=== PATIENT | male | born 1930 | race Caucasian/White ===

== ENCOUNTER → 2016-12-29 | Outpatient (CLI) | payer BC ==
[~2016-12-29] MED LIST: ALPOPS1 OPB; AMB5 PO; AMOX875T PO; ASPCH81 PO; CLON1TAB3 PO; CLX20 PO; FRRS300 PO; GABA-113 PO; GLCSUNK PO; IBUP1TAB51 PO; LAMO200T38 PO; NTRGSL/4 UT; PRAV20TA PO; ROPI1TAB PO; ROPI2TAB6 PO; TRAM-10 PO; TRVOPS OP
== END ==
LOC: C.LABFOXMH 09:10
PROVIDERS: ATTEND Internal Medicine
DX: G25.81 Restless legs syndrome (principal)

== ENCOUNTER → 2017-02-10 | Outpatient (CLI) | payer BC | END | disposition home or self-care (01) | LOC: C.LAB 16:06 | PROVIDERS: ATTEND Nurse Practitioner Family | DX: D64.9 Anemia, unspecified (principal) ==

== ENCOUNTER → 2017-03-25 | Outpatient (CLI) | payer BC ==
[2017-03-25 16:40] LABS: BASO % 0.2 %; BASO ABS # 0.01 K/uL (0-0.2); COMPLETE YES; EOS % 1.9 %; IG% 0.3 %; MEAN CELL VOLUME 92.9 fL (80-100); MEAN CORPUSCULAR HEMOGLOBIN 30.3 pg (25-34); MEAN CORPUSCULAR HGB CONC 32.6 g/dl (32-36); MEAN PLATELET VOLUME 9.5 fL (7.4-10.4); MONO % 7.6 %; PLATELET COUNT 221 K/uL (130-400); RED BLOOD COUNT 4.95 M/uL (4.7-6.1); WHITE BLOOD COUNT 6.32 K/uL (4.8-10.8)
== END | disposition home or self-care (01) ==
LOC: C.LABBC 13:35
PROVIDERS: ATTEND Nurse Practitioner Family
DX: T14.8 Other injury of unspecified body region (principal); X58.XXXA Exposure to other specified factors, initial encounter

== ENCOUNTER → 2017-04-06 | Outpatient (CLI) | payer BC ==
[2017-04-06 10:06] LABS: HEMATOCRIT 43.6 % (42-52); MEAN CELL VOLUME 91.2 fL (80-100); MEAN CORPUSCULAR HEMOGLOBIN 31.8 pg (25-34); MEAN CORPUSCULAR HGB CONC 34.9 g/dl (32-36); MEAN PLATELET VOLUME 9.8 fL (7.4-10.4); PLATELET COUNT 173 K/uL (130-400); RED BLOOD COUNT 4.78 M/uL (4.7-6.1); WHITE BLOOD COUNT 5.76 K/uL (4.8-10.8)
[2017-04-06 10:38] LABS: ALT/SGPT 19 U/L (12-78); AST/SGOT 13 U/L (15-37); BLOOD UREA NITROGEN 16 mg/dl (7-18); BUN/CREATININE RATIO 17.2 (10-20); CALCIUM 8.7 mg/dl (8.5-10.1); CARBON DIOXIDE 27 mmol/L (21-32); CHLORIDE 106 mmol/L (98-107); CREATININE 0.94 mg/dl (0.60-1.40); GLUCOSE 90 mg/dl (70-99); POTASSIUM 4.1 mmol/L (3.5-5.1); SODIUM 138 mmol/L (136-145)
[2017-04-06 10:48] LABS: ALB/GLOB RATIO 1.2 (0.9-2); ALKALINE PHOSPHATASE 79 U/L (45-117)
== END | disposition home or self-care (01) ==
LOC: C.LABFOXMH 09:03
PROVIDERS: ATTEND Internal Medicine
DX: R53.83 Other fatigue (principal)

== ENCOUNTER → 2017-05-09 | Outpatient (CLI) | payer BC ==
--- NOTE | 2017-05-10 06:10 | PAP/PSG TECHNICIAN REPORT ---
[facility] [address] Site Reliability Engineer Polysomnogram Report Study name: None Report date: 05/10/2017 Study date: 05/09/2017 Referring Physician: Sánchez Romano M.D. Name: OUMAR TAYLOR Interpreting Physician: Gregorio Jovel M.D. Date of : 1930 Site Reliability Engineer: Poly Hooks RPSGT. Sex: Male Age: 87 StudyType: PSG Weight: 148 lbs Height: 87 years, Height 5' 7.25" BMI: 23.01 Medications: Lamictal 100 mg, Klonopin 1 mg, Mirapex 0.25 mg, Ferrous Sulfate 325 mg, Ibuprofen 200 mg, Pepcid 20 mg, Pravastatin 20 mg Patient History 87 yr. old male here tonight for a diagnostic sleep study. Patient complains of PLMD but his medicine was changed and is sleeping better. Patient complains of snoring in the supine position, and twitching at night. Patients [place] Scale Score is 13/24. Parameters Monitored NPSG: E1-M2, E2-M1, Fp1-M2, Fp2-M1, F3-M2, F4-M2, F4-M1, C3-M2, C4-M2, C4-M1, O1-M2, O2-M2, O2-M1, T3-M2, T4-M1, P3-M2, P4-M1, CHIN1, CHIN2, HR, EKG, Legs, PFLOW, SNOR, FLOW, CFLOW, Tidal Volume, THOR, ABDO, SpO2, PLTH, CPRESS, ETCO2 Wave, ETCO2, pH Sleep Architecture Sleep Stages Time at Lights Off 10:16:19 PM STAGES Time (min.) TST (%) Time at Lights On 5:55:19 AM Wake 117.5 -- Total Recording Time (TRT) 459.50 min. N1 61.5 18 Total Sleep Period (TSP) 422.5 min. N2 259.5 76 Total Sleep Time (TST) 341.0min. N3 0.0 0 Awake Time 117.5 min. REM 20.0 6 Wake after Sleep Onset 81.5 min. Sleep Efficiency (SE) 74 % Sleep Onset Latency (RAMONA) 36.5 min. Number of Stage 1 Shifts None Awakenings 52 Stage Changes 158 Number of REM periods 2 REM 20.0 6 REM Latency 109.0 min. NREM 321.0 94 Body Position Analysis Supine Right Left Side Prone Vertical Total Sleep Time (min.) 82.5 104.5 178.0 282.50 0.0 31.9 Total Sleep Time (%) 17% 31% 52% 83 0% N/A% Total Sleep Time REM (min.) 11.5 0.0 8.5 None 0.0 0.0 Total Sleep Time NREM (min.) 47.0 104.5 169.5 None 0.0 0.0 Intermittent Wake (min.) 24.0 22.2 39.5 None 0.0 31.9 Total Sleep Period (%) 20% None None None None None Arousals Myoclonus (PLM) * Events Count Index Events Count Index Spontaneous 12 2 Events Awake (PLMW) 53 27.1 Respiratory 2 0.5 Events Asleep w/ Arousal (PLMA) 17 3.0 PLM 14 3 Events Asleep w/o Arousal (PLMS) 23 4.0 Snoring 15 3 Total Asleep 40 7.0 Total 41 7 Total 93 12 Respiratory Analysis * CA OA MA CH H RERA Total Count 0 0 0 0 7 0 7 Index 0.0 0.0 0.0 0 1.2 0 1.2 Mean Duration 0.0 0.0 0.0 0.00 19.6 0.0 19.6 Longest Duration 0.0 0.0 0.0 0.00 0.0 0.0 31.7 Respiratory Event Summary Total Supine ~Supine Right Left Prone REM NREM Apneas Count 0 0 0 0 0 N/A 0 0 Index 0.0 0 0 0.0 0.0 N/A 0 0 Hypopneas (4% Desat) Count 7 6 1 0 1 N/A 0 7 Index 1.2 6.2 0 0.0 0.3 N/A 0.0 1.3 Apneas & All Hypopneas Count 7 6 1 0 1 N/A 0 7 Index 1.2 6 0 0 0 N/A 0.0 1.3 Respiratory Events (Sales Effectiveness Manager+All Hyp+RERA) Count 7 6 1 0 1 N/A 0 7 Index 1.2 6 0 0.0 0.3 N/A 0.0 1.3 Respiratory Related Arousal Count 2 6 0 0 0 N/A 0 3 Index 0.5 3 0 0 0 N/A 0 1 Snoring Analysis Supine Right Left Prone REM NREM Total Snore duration 8.4 min Snores count 139 13 261 N/A 4 409 413 Snore mean duration 1.2 Sec Snores index 143 7 88 N/A 12.0 76.4 72.7 TST with snoring (%) 2.5% Desaturation Event Summary: Minimum %SpO2 Event Count Mean/Min/Max Duration(sec.) Desaturation Index % Time In Bed > 90 39 32.7 / 16.0 / 59.3 13.4 38.6 86 - 90 11 26.7 / 18.5 / 34.3 2.4 61.3 81 - 85 1 11.0 / 11.0 / 11.0 87.8 0.2 76 - 80 0 N/A 0.0 0.0 71 - 75 0 N/A 0.0 0.0 66 - 70 0 N/A 0.0 0.0 61 - 65 0 N/A 0.0 0.0 56 - 60 0 N/A 0.0 0.0 51 - 55 0 N/A 0.0 0.0 < 50 0 N/A 0.0 0.0 Total REM NREM Awake <50% 0.0 min. 0.0 min. 0.0 min. 0.0 min. 51 - 60% 0.0 min. 0.0 min. 0.0 min. 0.0 min. 61 - 70% 0.0 min. 0.0 min. 0.0 min. 0.0 min. 71 - 80% 0.0 min. 0.0 min. 0.0 min. 0.0 min. 81 - 90% 277.0 min. 17.0 min. 210.2 min. 49.8 min. 91 - 100% 174.0 min. 3.0 min. 109.5 min. 61.5 min. Average 90 90 90 91 Minimum SpO2 83 89 87 83 Desaturation Event Index 5.4 0.0 4.1 11.2 # Desat. Events below 89% 24 N/A 14 10 Time(%) with Saturation below 89% 2.3 0.0 1.1 1.2 Time(min.) with Saturation below 89% 10.5 0.0 5.0 5.5 Time (mins) REM (mins) NREM (mins) % of TST SpO2 Below 90% 20 N/A N20 17.7 SpO2 Below 88% 6 0 0 0 Heart Rate Analysis Min (bpm) Max (bpm) Average (bpm) Awake 60 127 70 NREM 36 77 65 REM 52 64 61 Overall 36 77 65 Supplemental O2 Values Minimum O2 level: None Value Start Time End Time Site Reliability Engineer Comments Mr. Taylor slept in the right, left, and supine positions. Cardiac arrhythmia and PLMs noted. No bruxism noted. Snoring was noted and scored as a 4 on a scale of 0 through 5. (0=no snoring, 5=snoring loud enough to be heard through a closed door or down the [address]) Mr. Taylor awoke to use the restroom once during the night. Mr. Taylor stated, I slept a little worse last night, but still better than I have been months ago. The final report will be interpreted and signed by a sleep physician. The completed physician report will then be placed in the patient medical record. Therapy (cm H2O) 0 TIB (min.) 458.5 TST (min.) 341.0 Sleep Onset (min.) 36.5 REM Onset From Sleep (min.) 109.0 Sleep Efficiency % 74 Wakefulness (%) 26 Wakefulness (min.) 117.5 NREM 1 (%) 18 NREM 1 (min.) 61.5 NREM 2 (%) 76 NREM 2 (min.) 259.5 NREM 3 (%) 0 NREM 3 (min.) 0.0 REM (%) 6 REM (min.) 20.0 # Arousals 41 Arousal Index 7 # Snore 413 Snore Index 72.7 AHI 1.2 AHI Supine 6 AHI Non-Supine 0 NREM AHI 1.3 REM AHI 0.0 RDI 1.2 # Obstructive Apnea 0 # Central Apnea 0 # Mixed Apnea 0 # Hypopneas 7 RERAs 0 Total Respiratory Events 9 Time Below SpO2 89% (min.) 5.0 Mean NREM SpO2 (%) 90 Mean REM SpO2 (%) 90 Mean Sleep SpO2 (%) 90 Min NREM SpO2 (%) 87 Min REM SpO2 (%) 89 Position Supine (min.) 82.5 Position Non-supine (min.) 282.5 LM Index Sleep 7.0 LM Index NREM 7.1 LM Index REM 6.0 Mean Heart Rate (bpm) 65 Min Heart Rate (bpm) 36
--- NOTE | 2017-05-11 14:04 | POLYSOMNOGRAPH REPORT ---
CLINICAL DATA: This is an 87-year-old male with BMI of [address] Leydi Romano with a history of PLMD. He recently was placed on Mirapex and he is sleeping better. He has snoring when supine and twitching at night. His [place] sleepiness score was elevated at 13/24. SLEEP ARCHITECTURE: Total sleep period was 422.5 minutes. Total sleep time was 341 minutes divided between 321 minutes of non-REM sleep and 20 minutes of REM sleep. Sleep onset latency was slightly delayed at 36.5 minutes. REM latency was 109 minutes. Sleep efficiency was 74%. Wake after sleep onset was 81.5 minutes. Sleep consisted of stage N1 18%, stage N2 76%, and REM 6%. AROUSAL DATA: 41 arousals were recorded for an index of 7 per hour. PLM DATA: 40 limb movements during sleep were noted for an index of 7 per hour with arousal index of 3 per hour. RESPIRATORY DATA: There was no evidence of clinically significant sleep apnea. The AHI was 1.2. There were 7 hypopneic episodes with a mean duration of 19.6 seconds. OXIMETRY DATA: Very transient nocturnal hypoxemia was seen. Oxygen tashia was 87%. Mean saturation was 90%. Time below 88% was 6 minutes. EKG: Heart rates ranged from 36-77 beats per minute. PVCs were noted. MACHINE CEMENTER AND FOLDER'S COMMENTS: The patient slept in the right, left, and supine positions. Snoring was severe, rated 4 on a scale of 1-5. He only awoke once to use the restroom. IMPRESSION: No evidence of clinically significant sleep apnea/hypopnea, nocturnal hypoxemia or abnormal limb movements during sleep. RECOMMENDATIONS: The patient should continue with his use of pramipexole for RLS/PLMD and continue to practice good sleep hygiene. JESSICAD
== END | disposition home or self-care (01) ==
LOC: C.NEUR 20:00
PROVIDERS: ATTEND Nurse Practitioner Family
DX: G47.33 Obstructive sleep apnea (adult) (pediatric) (principal); G47.10 Hypersomnia, unspecified; R06.83 Snoring

== ENCOUNTER → 2017-05-12 | Outpatient (CLI) | payer BC ==
[2017-05-12 08:19] LABS: MEAN CELL VOLUME 91.1 fL (80-100); MEAN CORPUSCULAR HEMOGLOBIN 31.3 pg (25-34); MEAN CORPUSCULAR HGB CONC 34.4 g/dl (32-36); MEAN PLATELET VOLUME 9.5 fL (7.4-10.4); PLATELET COUNT 167 K/uL (130-400); WHITE BLOOD COUNT 5.49 K/uL (4.8-10.8)
[2017-05-12 08:27] LABS: ALT/SGPT 18 U/L (12-78); BLOOD UREA NITROGEN 15 mg/dl (7-18); CALCIUM 8.9 mg/dl (8.5-10.1); CARBON DIOXIDE 27 mmol/L (21-32); CHLORIDE 105 mmol/L (98-107); CHOLESTEROL 132 mg/dl (0-200); CREATININE 0.94 mg/dl (0.60-1.40); GLUCOSE 88 mg/dl (70-99); POTASSIUM 4.1 mmol/L (3.5-5.1); SODIUM 139 mmol/L (136-145); TRIGLYCERIDES 50 mg/dl (0-150); VERY LOW DENSITY LIPOPROT CALC 10 mg/dl
[2017-05-12 08:36] LABS: ALB/GLOB RATIO 1.1 (0.9-2); ALKALINE PHOSPHATASE 71 U/L (45-117); AST/SGOT 15 U/L (15-37); FERRITIN 88.9 ng/ml (8.0-388.0); HDL CHOLESTEROL 65 mg/dl; LDL CHOLESTEROL CALCULATED 57 mg/dl; TOTAL IRON BINDING CAPACITY 247 mcg/dl (250-450)
--- NOTE | 2017-05-19 09:05 | CODING QUERY MEDICAL NECESSITY ---
SUPPORTING DIAGNOSIS NEEDED A supporting diagnosis is required for the test/procedure performed on this patient in order for us to be reimbursed by the patient's insurance. Please provide a supporting diagnosis for the following test/procedure listed below next to the test name along with your signature. *If there is no additional diagnosis for this patient that would support the following test/procedure please document that below next to the test/procedure. Test(s)/Procedure(s) that require a supporting diagnosis: * CBC W/O DIFF DIAGNOSIS: Provider Signature: Date: Thank you Sue Elder [employer] Once completed, please kindly fax back to [phone] For questions please call [phone]
== END | disposition home or self-care (01) ==
LOC: C.LABFOXMH 07:44
PROVIDERS: ATTEND Internal Medicine
DX: R53.83 Other fatigue (principal); E03.9 Hypothyroidism, unspecified; E78.00 Pure hypercholesterolemia, unspecified

== ENCOUNTER → 2017-11-22 | Outpatient (CLI) | payer BC ==
[~2017-11-22] MED LIST changes: +LAMO200T35 PO; -LAMO200T38 PO
--- NOTE | 2017-11-22 15:29 | DIAGNOSTIC IMAGING REPORT ---
CHEST 2 VIEWS ROUTINE CLINICAL HISTORY: COUGH dyspnea COMPARISON STUDY: 07/02/2010 FINDINGS: Mild emphysematous change. No focal infiltrate. 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 IMPRESSION: No acute process. Mild emphysematous change. The above report was generated using voice recognition software. It may contain grammatical, syntax or spelling errors. Electronically signed by: Peña Saldana M.D. 11/22/2017 3:28 PM Dictated Date/Time: 11/22/2017 3:27 PM
== END | disposition home or self-care (01) ==
LOC: C.RADBC 15:08
PROVIDERS: ATTEND Internal Medicine
DX: R05 Cough (principal)

== ENCOUNTER 2021-03-17 09:01 | Inpatient (IN) ==
[2021-03-17] MEDS ORDERED: IPRATROPIUM BROMIDE/ALBUTEROL respimat INH INH STA (09:44)
[2021-03-17 10:46] LABS: Basophils # (auto) 0.01 K/uL (0-0.2); Basophils % (auto) 0.2 %; Eosinophils # (auto) 0.14 K/uL (0-0.5); Eosinophils % (auto) 2.4 %; Hematocrit (blood only) 39.2 % (42-52); Hemoglobin 13.2 g/dL (14.0-18.0); Immature Granulocytes # (auto) 0.01 K/uL (0.00-0.02); Immature Granulocytes % (auto) 0.2 %; Lymphocytes # (auto) 0.87 K/uL (1.2-3.4); Lymphocytes % (auto) 14.7 %; Mean Corpuscular Hemoglobin 30.8 pg (25-34); Mean Corpuscular Hgb Conc 33.7 g/dL (32-36); Mean Corpuscular Volume 91.4 fL (80-100); Mean Platelet Volume 9.6 fL (7.4-10.4); Monocytes # (auto) 0.53 K/uL (0.11-0.59); Monocytes % (auto) 8.9 %; Neutrophils # (auto) 4.37 K/uL (1.4-6.5); Neutrophils % (auto) 73.6 %; Platelet Count 166 K/uL (130-400); RDW Coefficient of Variation 13.7 % (11.5-14.5); RDW Standard Deviation 45.2 fL (36.4-46.3); Red Blood Count 4.29 M/uL (4.7-6.1); White Blood Count 5.93 K/uL (4.8-10.8)
[2021-03-17 10:57] LABS: INR 1.1 (0.9-1.1); Partial Thromboplastin Time 26.5 Seconds (21.0-31.0); Prothrombin Time 11.3 Seconds (9.0-12.0)
[2021-03-17 11:05] LABS: Alanine Aminotransferase 27 U/L (12-78); Albumin Level 3.3 gm/dl (3.4-5.0); Aspartate Aminotransferase 19 U/L (15-37); BUN Creatinine Ratio 16.5 (10-20); Blood Urea Nitrogen 17 mg/dl (7-18); Calcium 8.2 mg/dl (8.5-10.1); Carbon Dioxide 25 mmol/L (21-32); Chloride 111 mmol/L (98-107); Creatinine Clr Calc Pharmacy 47.2 ml/min; Est GFR (African American) 75.2 ml/min; Est GFR (Non-African American) 64.9 ml/min; Glucose 105 mg/dl (70-99); Lipase 231 U/L (73-393); Magnesium 1.7 mg/dl (1.8-2.4); Potassium 2.7 mmol/L (3.5-5.1); Sodium 142 mmol/L (136-145)
[2021-03-17 11:08] LABS: Albumin Globulin Ratio 1.2 (0.9-2); Alkaline Phosphatase 83 U/L (45-117); Bilirubin Direct 0.2 mg/dl (0-0.2); Bilirubin,Total 0.6 mg/dl (0.2-1); Globulin 2.8 gm/dl (2.5-4.0); NT Pro B Type Natriuretic Pept 3987 pg/ml (0-1800); Phosphorus 2.9 mg/dl (2.5-4.9); Total Protein 6.1 gm/dl (6.4-8.2); Troponin I < 0.015 ng/ml (0-0.045)
--- NOTE | 2021-03-17 11:09 | XRay Report ---
XR chest 1V portable CLINICAL HISTORY: Chest Pain COMPARISON STUDY: Chest radiograph June 07, 2019. FINDINGS: Dual lead left subclavian pacemaker is in place. There is no pneumothorax. There are small bilateral pleural effusions with bibasilar opacities. Interstitial thickening represents pulmonary ed kael. IMPRESSION: Interstitial pulmonary edema with small bilateral pleural effusions and bibasilar opacit ies that statistically reflect atelectasis. Radiographic follow-up is recommended to ensure resolutio n. ACT 112: Negative or not required by law. Electronically signed by: Favian Rocha M.D. 03/17/2021 11:08 AM
[2021-03-17] MEDS ORDERED: MAGNESIUM SULFATE / D5W 1 GM/100 ML BAG IV STA (11:44)
[2021-03-17] MEDS: POTASSIUM CHLORIDE / WTR 10 MEQ/100 ML PLCT IV SCH ×4 (12:33→16:23)
--- NOTE | 2021-03-17 12:43 | CT Scan Report ---
CT ANGIOGRAPHY OF THE CHEST, PULMONARY EMBOLUS PROTOCOL CLINICAL HISTORY: sob, hypoxia, PE COMPARISON STUDY: Chest radiograph June 07, 2019 and March 17, 2021. TECHNIQUE: Following IV administration of 119 mL of Optiray, helical axial images of the chest were o btained utilizing the pulmonary embolus protocol. Maximal intensity projections and sagittal and cor onal reformats were viewed on an independent 3D workstation. IV contrast was administered without co mplication. Automated exposure control was utilized for the study. A dose lowering technique was ut ilized adhering to the principles of ALARA. CT DOSE: 291.80 mGy.cm FINDINGS: No pulmonary emboli are identified. A left clavian pacer is in place. There is mild cardio megaly. No pericardial effusion is noted. No pneumothorax. There are small bilateral pleural effusion s with associated atelectasis. Interlobular septal thickening is noted. Note is made of emphysema. A 4 mm right renal calculus is present. There is a punctate left renal calculus. A 1.1 cm right lobe hy podense hepatic lesion is similar to prior CT. This is benign. No acute fracture or suspicious lesion is identified within the visualized skeletal structures. There are multiple old healed left rib frac tures. There is moderate atherosclerotic plaque of the thoracic aorta. Coronary artery calcification is present. IMPRESSION: 1. No pulmonary emboli identified. 2. Interstitial pulmonary edema with small bilateral pleural effusions. 3. Emphysema. 4. Extensive coronary artery calcification. Mild cardiomegaly. ACT 112: Negative or not required by law. Electronically signed by: Favian Rocha M.D. 03/17/2021 12:42 PM
[2021-03-17] MEDS ORDERED: POTASSIUM CHLORIDE CRTAB 20 MEQ TABCR PO STA (13:56)
[2021-03-17] MEDS ORDERED: FUROSEMIDE 40 MG/4 ML VIAL IV STA (14:03)
--- NOTE | 2021-03-17 15:43 | Emergency Department Note ---
Impression & Plan CHF (congestive heart failure), Hypokalemia, Pacemaker ED Provider Note NAME: OUMAR RUFF AGE: 89 SEX: M ARRIVES VIA: Walk-In INFORMANT: Patient, ED PROVIDER(S): Tyler Marti MD CHIEF COMPLAINT: sob PLAN: Disposition: Admit MEDICAL DECISION MAKING: The patient is a pleasant 89-year-old gentleman with a past medical history of emphysema secondary to remote smoking history who presents to the emergency department with worsening shortness of breath over the past several weeks with the development of lower extremity edema. He reports seeing his provider yesterday and was told to come to emergency department if he did not feel improved today and so he presents for evaluation. He reports mildly productive cough. He denies any known COVID-19 exposures. He denies any fevers, chills, nausea, vomiting, diarrhea or urinary symptoms. On arrival the patient is mildly dyspneic appearing but no acute distress, afebrile with stable vital signs. He was noted to have hypoxia to 85% with minimal exertion walking to the bathroom. When at rest he will have O2 saturation of 93% or greater. Lungs with scant wheeze and rhonchi. 1+ BLE edema. EKG is paced without overt acute ischemia. Chest x-ray with pulmonary edema and bilateral pleural effusions further characterized on CTA of the chest. No PE is noted. Extensive coronary calcifications noted. WBC and platelets within normal limits. H/H 13.2/39.2 proximate to prior values. Potassium 2.7 with repletion initiated. Magnesium 1.7 with repletion initiated. Troponin negative/undetectable. BNP is elevated at 3900 without prior values for comparison. COVID-19 PCR was negative. Given the patient's hypoxia with minimal exertion and hypervolemia which appears to be new reasonable to admit the patient for further management. Lasix ordered. The patient and his daughter at the bedside were in agreement with plan for admission. Case was discussed with Dr. Helton, [facility] [place]ist, who will evaluate the patient for admission. Triage Nursing notes reviewed and agree them. Prior medical records reviewed Vital Signs: reviewed and remarkable for hypoxia. Differential diagnosis: Reactive airway disease, pneumonia, pneumothorax, COPD, CHF, infections, cardiac ischemia, pulmonary embolism, musculoskeletal, gastrointestinal, as well as other pathologies. ER treatment provided: See below. Diagnostics interpreted by me: ECG: Ventricular paced rhythm, 63 bpm, no ectopy, no overt acute ischemia. Cardiac Monitoring: An order for continuous cardiac monitoring was placed and demonstrated ventricular paced rhythm, 63 bpm, no ectopy. Laboratory studies: See below Imaging studies: See below Consultation(s): Case was discussed with Dr. Helton, [facility] [place]ist, who will evaluate the patient for admission. HPI: The patient is a pleasant 89-year-old gentleman with a past medical history of emphysema secondary to remote smoking history who presents to the emergency department with worsening shortness of breath over the past several weeks with the development of lower extremity edema. He reports seeing his provider yesterday and was told to come to emergency department if he did not feel improved today and so he presents for evaluation. He reports mildly productive cough. He denies any known COVID-19 exposures. ROS: See above HPI for pertinent positives & negatives. A total of 10 systems reviewed and were otherwise negative. PAST MEDICAL HISTORY:See Below PAST SURGICAL HISTORY:See Below FAMILY HISTORY:See Below SOCIAL HISTORY:See Below HOME MEDICATIONS:See Below ALLERGIES:See Below VITALS:See Below PHYSICAL EXAMINATION: GENERAL: Awake, alert, fatigued-appearing, in no distress HENT: Normocephalic, atraumatic. Oropharynx unremarkable. EYES: Normal conjunctiva. Sclera non-icteric. NECK: Supple. No nuchal rigidity. FROM. No JVD. RESPIRATORY: Scant wheezes and rhonchi. Mildly dyspneic. No acute distress. CARDIAC: Regular rate, normal rhythm. Extremities warm and well perfused. Pulses equal. ABDOMEN: Soft, non-distended. No tenderness to palpation. No rebound or guarding. No masses. RECTAL: Deferred. MUSCULOSKELETAL: Chest examination reveals no tenderness. The back is symmetrical on inspection without obvious abnormality. There is no CVA tenderness to palpation. No joint edema. LOWER EXTREMITIES: Calves are equal size bilaterally and non-tender. 1+ BLE edema. No discoloration. NEURO: Normal sensorium. No sensory or motor deficits noted. SKIN: No rash or jaundice noted. 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 Restless leg syndrome Seizure EPILEPSY (LAST EVENT OVER 30 YEARS AGO) Surgical History History of cataract surgery RT/LEFT History of colonoscopy History of esophagogastroduodenoscopy (EGD) History of tonsillectomy History of tooth extraction History of total knee replacement RT/LEFT Family History Mother Family history of diabetes mellitus Social History Smoking Status: Former smoker Cigarettes Per Day: QUIT OVER 50 YEARS AGO; Second Hand Exposure: No; Hx Alcohol Use: Yes Alcohol type: beer, wine and hard liquor Hx Substance Use: No Preferred Language: Irish Communication Ability: Effective Genetic Technologist Required: No Beliefs That Will Affect Care: None Current Living Situation: Spouse Other Information That Helps Us Care for You: No Feels Safe at Home: Yes Safety Concerns: Feels Safe At This Time Assistive Devices: Denture - Upper, Glasses and Hearing Aid - Bilateral Allergies Allergies Allergy/AdvReac Type Severity Reaction Status Date / Time No Known Allergies Verified 03/17/21 11:07 Home Meds Home Medications Medication Instructions Recorded Confirmed citalopram 40 mg tablet (Celexa) 40 mg PO HS 06/07/18 03/17/21 clonazepam 1 mg tablet (Klonopin) 1 mg PO HS 06/07/18 03/17/21 lamotrigine 100 mg tablet 100 mg PO HS 06/07/18 03/17/21 (Lamictal) pravastatin 20 mg tablet 20 mg PO HS 06/07/18 03/17/21 pramipexole 0.25 mg tablet 0.25 mg PO BID 06/13/18 03/17/21 (Mirapex) aspirin 81 mg tablet,delayed 81 mg PO HS 03/17/21 03/17/21 release (Aspirin Low Dose) metoprolol tartrate 25 mg tablet 25 mg PO BID 03/17/21 03/17/21 Results & Data (ED) Vital Signs Vital Signs - 24 hr 03/17/21 09:02 03/17/21 09:09 03/17/21 10:31 Temperature 36.1 C L Temperature Source Temporal Artery Scan Pulse Rate 85 72 Pulse Rate [Apical] Pulse Rate from SpO2 Sensor 70 Respiratory Rate 22 22 20 Respiratory Effort / Characteristics Short of Breath Respiratory Depth Shallow Respiratory Pattern Tachypnea Blood Pressure 128/76 129/66 Blood Pressure [Left Arm] Blood Pressure Mean 93 87 Blood Pressure Mean [Left Arm] Blood Pressure Position [Left Arm] Pulse Oximetry 94 90 Oxygen Delivery Method Room Air Room Air Oxygen Flow Rate Sepsis Recent Fever Within 48 Hours No Sepsis New/Unexplained Change in Mental Status N/A Sepsis Action Taken by Nursing No Action Required Oxygen Flow Rate - Titration Pulse Oximetry Post Tiitration 03/17/21 10:37 03/17/21 10:38 03/17/21 11:02 Temperature Temperature Source Pulse Rate Pulse Rate [Apical] Pulse Rate from SpO2 Sensor Respiratory Rate 22 Respiratory Effort / Characteristics Respiratory Depth Normal Respiratory Pattern Tachypnea Blood Pressure Blood Pressure [Left Arm] 159/82 H Blood Pressure Mean Blood Pressure Mean [Left Arm] 107 Blood Pressure Position [Left Arm] Lying Pulse Oximetry 89 L 89 L 93 Oxygen Delivery Method Room Air Nasal Cannula Nasal Cannula Oxygen Flow Rate 0 2 Sepsis Recent Fever Within 48 Hours Sepsis New/Unexplained Change in Mental Status Sepsis Action Taken by Nursing Oxygen Flow Rate - Titration 2 Pulse Oximetry Post Tiitration 93 03/17/21 12:20 03/17/21 13:10 03/17/21 14:49 Temperature Temperature Source Pulse Rate 66 61 62 Pulse Rate [Apical] Pulse Rate from SpO2 Sensor 65 62 Respiratory Rate 20 20 21 Respiratory Effort / Characteristics Respiratory Depth Respiratory Pattern Blood Pressure 174/93 H 169/94 H 158/104 H Blood Pressure [Left Arm] Blood Pressure Mean 120 119 122 Blood Pressure Mean [Left Arm] Blood Pressure Position [Left Arm] Pulse Oximetry 90 94 95 Oxygen Delivery Method Oxygen Flow Rate Sepsis Recent Fever Within 48 Hours Sepsis New/Unexplained Change in Mental Status Sepsis Action Taken by Nursing Oxygen Flow Rate - Titration Pulse Oximetry Post Tiitration 03/17/21 14:51 03/17/21 16:02 Temperature Temperature Source Pulse Rate 83 Pulse Rate [Apical] 62 Pulse Rate from SpO2 Sensor Respiratory Rate 18 Respiratory Effort / Characteristics Respiratory Depth Respiratory Pattern Blood Pressure 155/105 H Blood Pressure [Left Arm] 158/104 H Blood Pressure Mean 121 Blood Pressure Mean [Left Arm] 122 Blood Pressure Position [Left Arm] Pulse Oximetry 93 Oxygen Delivery Method Room Air Oxygen Flow Rate Sepsis Recent Fever Within 48 Hours Sepsis New/Unexplained Change in Mental Status Sepsis Action Taken by Nursing Oxygen Flow Rate - Titration Pulse Oximetry Post Tiitration Laboratory Data Attestation: I reviewed the patient's lab results. Result diagrams: 03/17/21 10:32 03/17/21 10:32 Lab Results 03/17/21 03/17/21 03/17/21 Range/Units 10:03 10:03 10:32 WBC 5.93 (4.8-10.8) K/uL RBC 4.29 L (4.7-6.1) M/uL Hgb 13.2 L (14.0-18.0) g/dL Hct 39.2 L (42-52) % MCV 91.4 (80-100) fL MCH 30.8 (25-34) pg MCHC 33.7 (32-36) g/dL RDW Std Deviation 45.2 (36.4-46.3) fL RDW Coeff of Howie 13.7 (11.5-14.5) % Plt Count 166 (130-400) K/uL MPV 9.6 (7.4-10.4) fL Immature Gran % (Auto) 0.2 % Neut % (Auto) 73.6 % Lymph % (Auto) 14.7 % [place] % (Auto) 8.9 % Eos % (Auto) 2.4 % Baso % (Auto) 0.2 % Neut # (Auto) 4.37 (1.4-6.5) K/uL Lymph # (Auto) 0.87 L (1.2-3.4) K/uL [place] # (Auto) 0.53 (0.11-0.59) K/uL Eos # (Auto) 0.14 (0-0.5) K/uL Baso # (Auto) 0.01 (0-0.2) K/uL Immature Gran # (Auto) 0.01 (0.00-0.02) K/uL PT (9.0-12.0) Seconds INR (0.9-1.1) APTT (21.0-31.0) Seconds PTT Ratio Sodium (136-145) mmol/L Potassium (3.5-5.1) mmol/L Chloride (98-107) mmol/L Carbon Dioxide (21-32) mmol/L Anion Gap (3-11) BUN (7-18) mg/dl Creatinine (0.6-1.4) mg/dl Est Cr Clr Drug Dosing ml/min Est GFR ( Amer) ml/min Est GFR (Non-Af Amer) ml/min BUN/Creatinine Ratio (10-20) Glucose (70-99) mg/dl Calcium (8.5-10.1) mg/dl Phosphorus (2.5-4.9) mg/dl Magnesium (1.8-2.4) mg/dl Total Bilirubin (0.2-1) mg/dl Direct Bilirubin (0-0.2) mg/dl AST (15-37) U/L ALT (12-78) U/L Alkaline Phosphatase (45-117) U/L Troponin I (0-0.045) ng/ml NT-Pro-B Natriuret Pep (0-1800) pg/ml Total Protein (6.4-8.2) gm/dl Albumin (3.4-5.0) gm/dl Globulin (2.5-4.0) gm/dl Albumin/Globulin Ratio (0.9-2) Lipase (73-393) U/L COVID-19 Eval Order Covid19 at [facility] SARS-CoV-2 (PCR) NEGATIVE (Negative) 03/17/21 03/17/21 Range/Units 10:32 10:32 WBC (4.8-10.8) K/uL RBC (4.7-6.1) M/uL Hgb (14.0-18.0) g/dL Hct (42-52) % MCV (80-100) fL MCH (25-34) pg MCHC (32-36) g/dL RDW Std Deviation (36.4-46.3) fL RDW Coeff of Howie (11.5-14.5) % Plt Count (130-400) K/uL MPV (7.4-10.4) fL Immature Gran % (Auto) % Neut % (Auto) % Lymph % (Auto) % [place] % (Auto) % Eos % (Auto) % Baso % (Auto) % Neut # (Auto) (1.4-6.5) K/uL Lymph # (Auto) (1.2-3.4) K/uL [place] # (Auto) (0.11-0.59) K/uL Eos # (Auto) (0-0.5) K/uL Baso # (Auto) (0-0.2) K/uL Immature Gran # (Auto) (0.00-0.02) K/uL PT 11.3 (9.0-12.0) Seconds INR 1.1 (0.9-1.1) APTT 26.5 (21.0-31.0) Seconds PTT Ratio 1.0 Sodium 142 (136-145) mmol/L Potassium 2.7 L (3.5-5.1) mmol/L Chloride 111 H (98-107) mmol/L Carbon Dioxide 25 (21-32) mmol/L Anion Gap 6.0 (3-11) BUN 17 (7-18) mg/dl Creatinine 1.02 (0.6-1.4) mg/dl Est Cr Clr Drug Dosing 47.2 ml/min Est GFR ( Amer) 75.2 ml/min Est GFR (Non-Af Amer) 64.9 ml/min BUN/Creatinine Ratio 16.5 (10-20) Glucose 105 H (70-99) mg/dl Calcium 8.2 L (8.5-10.1) mg/dl Phosphorus 2.9 (2.5-4.9) mg/dl Magnesium 1.7 L (1.8-2.4) mg/dl Total Bilirubin 0.6 (0.2-1) mg/dl Direct Bilirubin 0.2 (0-0.2) mg/dl AST 19 (15-37) U/L ALT 27 (12-78) U/L Alkaline Phosphatase 83 (45-117) U/L Troponin I < 0.015 (0-0.045) ng/ml NT-Pro-B Natriuret Pep 3987 H (0-1800) pg/ml Total Protein 6.1 L (6.4-8.2) gm/dl Albumin 3.3 L (3.4-5.0) gm/dl Globulin 2.8 (2.5-4.0) gm/dl Albumin/Globulin Ratio 1.2 (0.9-2) Lipase 231 (73-393) U/L COVID-19 Eval Order SARS-CoV-2 (PCR) (Negative) Administered Medications Aspirin (Aspirin 81 Mg Ectab) 81 mg PO HS GONSALO Stop: 04/16/21 20:59 Last Admin: 03/17/21 20:43 Dose: 81 mg Documented by: [id number] Citalopram Hydrobromide (Citalopram 40 Mg Tab) 40 mg PO HS GONSALO Stop: 04/16/21 20:59 Last Admin: 03/17/21 20:43 Dose: 40 mg Documented by: [id number] Clonazepam (Clonazepam 1 Mg Tab) 1 mg PO HS GONSALO Stop: 04/16/21 20:59 Last Admin: 03/17/21 22:27 Dose: 1 mg Documented by: [id number] Enoxaparin Sodium (Enoxaparin Inj 40 Mg/0.4 Ml Syr) 40 mg SQ Q24H GONSALO Stop: 04/16/21 20:59 Last Admin: 03/17/21 20:43 Dose: 40 mg Documented by: [id number] Lamotrigine (Lamotrigine 100 Mg Tab) 100 mg PO HS GONSALO Stop: 04/16/21 20:59 Last Admin: 03/17/21 20:43 Dose: 100 mg Documented by: [id number] Metoprolol Tartrate (Metoprolol Tartrate 25 Mg Tab) 25 mg PO BID GONSALO Stop: 04/16/21 20:59 Last Admin: 03/17/21 20:43 Dose: 25 mg Documented by: [id number] Pramipexole Dihydrochloride (Pramipexole Dihydrochlo 0.25 Mg Tab) 0.25 mg PO DAILY@1130,2100 GONSALO Stop: 04/16/21 20:59 Last Admin: 03/17/21 20:44 Dose: 0.25 mg Documented by: [id number] Pravastatin Sodium (Pravastatin Sod 20 Mg Tab) 20 mg PO GONSALO Stop: 04/16/21 20:59 Last Admin: 03/17/21 20:44 Dose: 20 mg Documented by: [id number] Discontinued Medications Albuterol (Ipratropium [place]/Albuterol Respimat Inh) 1 puffs INH NOW STA Stop: 03/17/21 09:45 Last Admin: 03/17/21 10:05 Dose: 1 puffs Documented by: [id number] Furosemide (Furosemide 40 Mg/4 Ml Vial) 20 mg IV NOW STA Stop: 03/17/21 14:04 Last Admin: 03/17/21 14:45 Dose: 20 mg Documented by: [id number] Furosemide (Furosemide 40 Mg/4 Ml Vial) 20 mg IV Q12H GONSALO Stop: 04/16/21 16:31 Last Admin: 03/17/21 17:46 Dose: Not Given Documented by: [id number] Hydralazine HCl (Hydralazine Hcl 20 Mg/Ml Vial) 10 mg IV NOW STA Stop: 03/17/21 18:07 Last Admin: 03/17/21 18:39 Dose: 10 mg Documented by: [id number] Potassium Chloride (K Hema / Wtr) 10 meq in 100 mls @ 100 mls/hr IV Q1H GONSALO Stop: 03/17/21 13:44 Last Infusion: 03/17/21 14:28 Dose: 0 mls/hr Documented by: [id number] Admin: 03/17/21 13:22 Dose: 100 mls/hr Documented by: [id number] Infusion: 03/17/21 13:22 Dose: 100 mls/hr Documented by: [id number] Admin: 03/17/21 12:33 Dose: 100 mls/hr Documented by: [id number] Magnesium Sulfate/Dextrose (Magnesium Sulfate / D5w) 1 gm in 100 mls @ 100 mls/hr IV NOW STA Stop: 03/17/21 12:43 Last Infusion: 03/17/21 13:36 Dose: 0 mls/hr Documented by: [id number] Admin: 03/17/21 12:33 Dose: 100 mls/hr Documented by: [id number] Potassium Chloride (K Hema / Wtr) 10 meq in 100 mls @ 100 mls/hr IV Q1H GONSALO Stop: 03/17/21 15:59 Last Infusion: 03/17/21 17:46 Dose: 0 mls/hr Documented by: [id number] Admin: 03/17/21 16:23 Dose: 100 mls/hr Documented by: [id number] Infusion: 03/17/21 16:07 Dose: 100 mls/hr Documented by: [id number] Admin: 03/17/21 15:07 Dose: 100 mls/hr Documented by: [id number] Potassium Chloride (Potassium Chloride Crtab 20 Meq Tabcr) 40 meq PO NOW STA Stop: 03/17/21 13:57 Last Admin: 03/17/21 14:45 Dose: 40 meq Documented by: [id number] Imaging Data Radiologist's Impression: Chest X-Ray 03/17/21 09:41 XR chest 1V portable CLINICAL HISTORY: Chest Pain COMPARISON STUDY: Chest radiograph June 07, 2019. FINDINGS: Dual lead left subclavian pacemaker is in place. There is no pneumothorax. There are small bilateral pleural effusions with bibasilar opacities. Interstitial thickening represents pulmonary edema. IMPRESSION: Interstitial pulmonary edema with small bilateral pleural effusions and bibasilar opacities that statistically reflect atelectasis. Radiographic follow-up is recommended to ensure resolution. ACT 112: Negative or not required by law. Electronically signed by: Favian Rocha M.D. 03/17/2021 11:08 AM Chest CTA 03/17/21 11:43 CT ANGIOGRAPHY OF THE CHEST, PULMONARY EMBOLUS PROTOCOL CLINICAL HISTORY: sob, hypoxia, PE COMPARISON STUDY: Chest radiograph June 07, 2019 and March 17, 2021. TECHNIQUE: Following IV administration of 119 mL of Optiray, helical axial images of the chest were obtained utilizing the pulmonary embolus protocol. Maximal intensity projections and sagittal and coronal reformats were viewed on an independent 3D workstation. IV contrast was administered without complication. Automated exposure control was utilized for the study. A dose lowering technique was utilized adhering to the principles of ALARA. CT DOSE: 291.80 mGy.cm FINDINGS: No pulmonary emboli are identified. A left clavian pacer is in place. There is mild cardiomegaly. No pericardial effusion is noted. No pneumothorax. There are small bilateral pleural effusions with associated atelectasis. Interlobular septal thickening is noted. Note is made of emphysema. A 4 mm right renal calculus is present. There is a punctate left renal calculus. A 1.1 cm right lobe hypodense hepatic lesion is similar to prior CT. This is benign. No acute fracture or suspicious lesion is identified within the visualized skeletal structures. There are multiple old healed left rib fractures. There is moderate atherosclerotic plaque of the thoracic aorta. Coronary artery calcification is present. IMPRESSION: 1. No pulmonary emboli identified. 2. Interstitial pulmonary edema with small bilateral pleural effusions. 3. Emphysema. 4. Extensive coronary artery calcification. Mild cardiomegaly. ACT 112: Negative or not required by law. Electronically signed by: Favian Rocha M.D. 03/17/2021 12:42 PM Discharge Plan Visit Data Chief Complaint: Shortness of Breath/Dyspnea Stated Complaint: TROUBLE BREATHING, SENT BY DR FINNEGAN Provider: Tyler Marti Discharge Problem: CHF (congestive heart failure), Hypokalemia, Pacemaker Patient Disposition: Admitted As Inpatient Discharge Instructions Interventions: ED Discharge Assessment Last Done: 03/17/21 16:53 Discharge Problem: CHF (congestive heart failure) Qualifiers: Heart failure type: unspecified Heart failure chronicity: unspecified Qualified Code(s): I50.9 - Heart failure, unspecified
--- NOTE | 2021-03-17 16:25 | History & Physical Report ---
Date of Service March 17, 2021 Assessment & Plan (1) CHF (congestive heart failure): Plan: Findings are consistent with new onset CHF, patient has no previous history We will admit to a monitored bed Trend cardiac enzymes Check 2D echo continue metoprolol as ordered for now Patient was given Lasix 20 mg IV in the emergency room, okay to continue this every 12. Monitor renal function, daily weights, and ins and outs I will ask cardiology to evaluate for further recommendation (2) Hypokalemia: Plan: Patient was given 40 mEq p.o. and 40 mg IV in the emergency room and We will recheck in the morning and replete further as necessary with diuresis on board (3) Restless leg syndrome: Plan: Patient is on several medications for this, will continue as per outpatient dosing History of Present Illness Chief Complaint: DARNELL/edema Primary Care Provider: Rob Aponte This is a 89-year-old male past medical history of COPD that presents today complaining of worsening lower extremity edema and dyspnea on exertion. Patient is here with his daughter, both are very good historians. Patient notes that over the past several weeks that he has had onset of symptoms he has never experienced. He noted more recently that he has been having some lower extremity edema. Of more concern, he is noted that he has had decreased exercise tolerance and has been having dyspnea on exertion over shorter shorter distances. He denies any chest pain. He denies any fever or chills. He denies any urinary symptoms he denies any flank pain. He tells me that he is typically physically active but has been less able to engage in exercise because of this. He went to see his primary care provider yesterday and was told to present to the emergency room for further evaluation. At the time my evaluation, the patient is in no acute cardiopulmonary distress. He was noted to be hypertensive which is not typical for him. Imaging was consistent with CHF and patient did have an elevated BNP. Allergies Allergy/AdvReac Type Severity Reaction Status Date / Time No Known Allergies Verified 03/17/21 11:07 Home Medications Medication Instructions Recorded Confirmed Type citalopram 40 mg tablet (Celexa) 40 mg PO HS 06/07/18 03/17/21 History clonazepam 1 mg tablet (Klonopin) 1 mg PO HS 06/07/18 03/17/21 History lamotrigine 100 mg tablet 100 mg PO HS 06/07/18 03/17/21 History (Lamictal) pravastatin 20 mg tablet 20 mg PO HS 06/07/18 03/17/21 History pramipexole 0.25 mg tablet 0.25 mg PO BID 06/13/18 03/17/21 History (Mirapex) aspirin 81 mg tablet,delayed 81 mg PO HS 03/17/21 03/17/21 History release (Aspirin Low Dose) metoprolol tartrate 25 mg tablet 25 mg PO BID 03/17/21 03/17/21 History Past Med/Surg History Medical History (Updated 03/17/21 @ 16:29 by Geo Helton DO) Anxiety Depression Hearing deficit Hyperlipidemia Osteoarthritis Pacemaker IMPLANTED 6 YRS AGO/BRADYCARDIA MEDTRONIC DEVICE [employer] InsightER CARDIOLOGY>KWAME SOPHIA Restless leg syndrome Seizure EPILEPSY (LAST EVENT OVER 30 YEARS AGO) Surgical History History of cataract surgery RT/LEFT History of colonoscopy History of esophagogastroduodenoscopy (EGD) History of tonsillectomy History of tooth extraction History of total knee replacement RT/LEFT Family History Mother Family history of diabetes mellitus Social History Smoking Status: Former smoker Cigarettes Per Day: QUIT OVER 50 YEARS AGO; Second Hand Exposure: No; Hx Alcohol Use: Yes Alcohol type: beer Hx Substance Use: No Preferred Language: Nepali Communication Ability: Effective Community Relations Assistant Required: No Beliefs That Will Affect Care: None Current Living Situation: Spouse Feels Safe at Home: Yes Assistive Devices: Denture - Upper, Glasses and Hearing Aid - Bilateral Review of Systems Constitutional: + weakness; no fever, no chills, no weight loss and no weight gain Eyes: as per Subjective / HPI Respiratory: + dyspnea on exertion; no cough and no chest congestion Cardiovascular: + dyspnea on exertion; no chest pain, no orthopnea, no palpitations, no lightheadedness and no edema Additional Comments: Significant for edema of the lower extremities Gastrointestinal: no abdominal pain, no nausea, no vomiting, no constipation and no diarrhea/loose stools Musculoskeletal: no back pain, no neck pain, no joint pain, no stiffness and no myalgia Integumentary: no rash Neurologic: no gait abnormality, no unsteadiness, no falls and no generalized weakness Physical Exam Constitutional: cooperative; no acute distress Neck: trachea midline, no thyromegaly +mild JVD. no bruit Respiratory: normal respiratory effort Auscultation: + rales (b/l bases); no crackles, no rhonchi and no wheezes Cardiovascular: Rate/Rhythm: regular rate and regular rhythm Heart Sounds: normal S1 and normal S2 Extremities: + pedal edema (1-2+) Gastrointestinal (Abdomen): Inspection/Auscultation: abdomen normal to inspection Percussion/Palpation: abdomen soft; abdomen nontender, no guarding, abdomen not rigid and no hepatosplenomegaly Skin: no rashes, warm and dry Results & Data Results & Data ([facility]) Vital Signs (Past 12 Hours) Vital Signs Temp Pulse Pulse Resp BP BP Pulse Ox 03/17/21 14:51 62 18 158/104 H 93 03/17/21 14:49 62 21 158/104 H 95 03/17/21 13:10 61 20 169/94 H 94 03/17/21 12:20 66 20 174/93 H 90 03/17/21 11:02 22 159/82 H 93 03/17/21 10:38 89 L 03/17/21 10:37 89 L 03/17/21 10:31 72 20 129/66 90 03/17/21 09:09 36.1 C L 85 22 128/76 94 03/17/21 09:02 22 Laboratory Results Laboratory Results WBC 5.93 K/uL (4.8-10.8) 03/17/21 10:32 RBC 4.29 M/uL (4.7-6.1) L 03/17/21 10:32 Hgb 13.2 g/dL (14.0-18.0) L 03/17/21 10:32 Hct 39.2 % (42-52) L 03/17/21 10:32 MCV 91.4 fL (80-100) 03/17/21 10:32 MCH 30.8 pg (25-34) 03/17/21 10:32 MCHC 33.7 g/dL (32-36) 03/17/21 10:32 RDW Std Deviation 45.2 fL (36.4-46.3) 03/17/21 10:32 RDW Coeff of Howie 13.7 % (11.5-14.5) 03/17/21 10:32 Plt Count 166 K/uL (130-400) 03/17/21 10:32 MPV 9.6 fL (7.4-10.4) 03/17/21 10:32 Immature Gran % (Auto) 0.2 % 03/17/21 10:32 Neut % (Auto) 73.6 % 03/17/21 10:32 Lymph % (Auto) 14.7 % 03/17/21 10:32 [place] % (Auto) 8.9 % 03/17/21 10:32 Eos % (Auto) 2.4 % 03/17/21 10:32 Baso % (Auto) 0.2 % 03/17/21 10:32 Neut # (Auto) 4.37 K/uL (1.4-6.5) 03/17/21 10:32 Lymph # (Auto) 0.87 K/uL (1.2-3.4) L 03/17/21 10:32 [place] # (Auto) 0.53 K/uL (0.11-0.59) 03/17/21 10:32 Eos # (Auto) 0.14 K/uL (0-0.5) 03/17/21 10:32 Baso # (Auto) 0.01 K/uL (0-0.2) 03/17/21 10:32 Immature Gran # (Auto) 0.01 K/uL (0.00-0.02) 03/17/21 10:32 PT 11.3 Seconds (9.0-12.0) 03/17/21 10:32 INR 1.1 (0.9-1.1) 03/17/21 10:32 APTT 26.5 Seconds (21.0-31.0) 03/17/21 10:32 PTT Ratio 1.0 03/17/21 10:32 Sodium 142 mmol/L (136-145) 03/17/21 10:32 Potassium 2.7 mmol/L (3.5-5.1) L 03/17/21 10:32 Chloride 111 mmol/L (98-107) H 03/17/21 10:32 Carbon Dioxide 25 mmol/L (21-32) 03/17/21 10:32 Anion Gap 6.0 (3-11) 03/17/21 10:32 BUN 17 mg/dl (7-18) 03/17/21 10:32 Creatinine 1.02 mg/dl (0.6-1.4) 03/17/21 10:32 Est Cr Clr Drug Dosing 47.2 ml/min 03/17/21 10:32 Est GFR ( Amer) 75.2 ml/min 03/17/21 10:32 Est GFR (Non-Af Amer) 64.9 ml/min 03/17/21 10:32 BUN/Creatinine Ratio 16.5 (10-20) 03/17/21 10:32 Glucose 105 mg/dl (70-99) H 03/17/21 10:32 Calcium 8.2 mg/dl (8.5-10.1) L 03/17/21 10:32 Phosphorus 2.9 mg/dl (2.5-4.9) 03/17/21 10:32 Magnesium 1.7 mg/dl (1.8-2.4) L 03/17/21 10:32 Total Bilirubin 0.6 mg/dl (0.2-1) 03/17/21 10:32 Direct Bilirubin 0.2 mg/dl (0-0.2) 03/17/21 10:32 AST 19 U/L (15-37) 03/17/21 10:32 ALT 27 U/L (12-78) 03/17/21 10:32 Alkaline Phosphatase 83 U/L (45-117) 03/17/21 10:32 Troponin I < 0.015 ng/ml (0-0.045) 03/17/21 10:32 NT-Pro-B Natriuret Pep 3987 pg/ml (0-1800) H 03/17/21 10:32 Total Protein 6.1 gm/dl (6.4-8.2) L 03/17/21 10:32 Albumin 3.3 gm/dl (3.4-5.0) L 03/17/21 10:32 Globulin 2.8 gm/dl (2.5-4.0) 03/17/21 10:32 Albumin/Globulin Ratio 1.2 (0.9-2) 03/17/21 10:32 Lipase 231 U/L (73-393) 03/17/21 10:32 COVID-19 Eval Order Covid19 at [facility] 03/17/21 10:03 SARS-CoV-2 (PCR) NEGATIVE (Negative) 03/17/21 10:03 Impressions Chest X-Ray 03/17/21 09:41 XR chest 1V portable CLINICAL HISTORY: Chest Pain COMPARISON STUDY: Chest radiograph June 07, 2019. FINDINGS: Dual lead left subclavian pacemaker is in place. There is no pneumothorax. There are small bilateral pleural effusions with bibasilar opacities. Interstitial thickening represents pulmonary edema. IMPRESSION: Interstitial pulmonary edema with small bilateral pleural effusions and bibasilar opacities that statistically reflect atelectasis. Radiographic follow-up is recommended to ensure resolution. ACT 112: Negative or not required by law. Electronically signed by: Favian Rocha M.D. 03/17/2021 11:08 AM Chest CTA 03/17/21 11:43 CT ANGIOGRAPHY OF THE CHEST, PULMONARY EMBOLUS PROTOCOL CLINICAL HISTORY: sob, hypoxia, PE COMPARISON STUDY: Chest radiograph June 07, 2019 and March 17, 2021. TECHNIQUE: Following IV administration of 119 mL of Optiray, helical axial images of the chest were obtained utilizing the pulmonary embolus protocol. Maximal intensity projections and sagittal and coronal reformats were viewed on an independent 3D workstation. IV contrast was administered without complication. Automated exposure control was utilized for the study. A dose lowering technique was utilized adhering to the principles of ALARA. CT DOSE: 291.80 mGy.cm FINDINGS: No pulmonary emboli are identified. A left clavian pacer is in place. There is mild cardiomegaly. No pericardial effusion is noted. No pneumothorax. There are small bilateral pleural effusions with associated atelectasis. Interlobular septal thickening is noted. Note is made of emphysema. A 4 mm right renal calculus is present. There is a punctate left renal calculus. A 1.1 cm right lobe hypodense hepatic lesion is similar to prior CT. This is benign. No acute fracture or suspicious lesion is identified within the visualized skeletal structures. There are multiple old healed left rib fractures. There is moderate atherosclerotic plaque of the thoracic aorta. Coronary artery calcification is present. IMPRESSION: 1. No pulmonary emboli identified. 2. Interstitial pulmonary edema with small bilateral pleural effusions. 3. Emphysema. 4. Extensive coronary artery calcification. Mild cardiomegaly. ACT 112: Negative or not required by law. Electronically signed by: Favian Rocha M.D. 03/17/2021 12:42 PM PG Care Time/CCT Total # of Minutes Spent Total Time Spent with Patient: Total time spent is greater than 50% in coordination of care (as documented) at patient's floor/unit and/or counseling patient: Coding Level of Care Code 98492 Initial Inpt Care Lvl 3 Diagnoses CHF (congestive heart failure) I50.9 Restless leg syndrome G25.81 Hypokalemia E87.6
[2021-03-17] MEDS ORDERED: FUROSEMIDE 40 MG/4 ML VIAL IV SCH (16:32)
[2021-03-17] MEDS ORDERED: ACETAMINOPHEN 325 MG TAB PO PRN (17:14)
[2021-03-17] MEDS ORDERED: ONDANSETRON INJ 2 MG/ML 2 ML VIAL IV PRN (17:14)
[2021-03-17] MEDS ORDERED: PNEUMOCOCCAL POLYSACCHARIDES 25 MCG/0.5 ML VIAL/SYR IM ONE (17:43)
[2021-03-17] MEDS ORDERED: hydrALAZINE HCL 20 MG/ML VIAL IV STA (18:06)
[2021-03-17] MEDS: lamoTRIgine 100 MG TAB PO SCH (20:43)
[2021-03-17] MEDS: ENOXAPARIN INJ 40 MG/0.4 ML SYR SQ SCH (20:43)
[2021-03-17] MEDS: METOPROLOL TARTRATE 25 MG TAB PO SCH (20:43)
[2021-03-17] MEDS: CITALOPRAM 40 MG TAB PO SCH (20:43)
[2021-03-17] MEDS: ASPIRIN 81 MG ECTAB PO SCH (20:43)
[2021-03-17] MEDS: PRAMIPEXOLE DIHYDROCHLO 0.25 MG TAB PO SCH (20:44)
[2021-03-17] MEDS: PRAVASTATIN SOD 20 MG TAB PO SCH (20:44)
[2021-03-17] MEDS ORDERED: PRAMIPEXOLE DIHYDROCHLO 0.25 MG TAB PO SCH (21:00)
[2021-03-17] MEDS: clonazePAM 1 MG TAB PO SCH (22:27)
--- NOTE | 2021-03-18 05:47 | Electrocardiogram Report ---
Test Reason : Blood Pressure : / mmHG Vent. Rate : 063 BPM Atrial Rate : 220 BPM P-R Int : 000 ms QRS Dur : 176 ms QT Int : 548 ms P-R-T Axes : 000 -72 122 degrees QTc Int : 560 ms Ventricular-paced rhythm Atrial flutter Abnormal ECG When compared with ECG of 05-JUL-2010 06:54, Atrial flutter has replaced Sinus rhythm Ventricular pacing is now present Confirmed by Aj Weems ([id number]) on 03/18/2021 5:47:05 AM Referred By: Rob Aponte Confirmed By:Aj Weems
[2021-03-18 05:51] LABS: Basophils # (auto) 0.02 K/uL (0-0.2); Basophils % (auto) 0.3 %; Eosinophils # (auto) 0.19 K/uL (0-0.5); Eosinophils % (auto) 3.2 %; Hematocrit (blood only) 40.3 % (42-52); Hemoglobin 13.9 g/dL (14.0-18.0); Lymphocytes # (auto) 1.08 K/uL (1.2-3.4); Lymphocytes % (auto) 18.2 %; Mean Corpuscular Hemoglobin 31.4 pg (25-34); Mean Corpuscular Hgb Conc 34.5 g/dL (32-36); Mean Corpuscular Volume 91.2 fL (80-100); Mean Platelet Volume 9.6 fL (7.4-10.4); Monocytes # (auto) 0.53 K/uL (0.11-0.59); Neutrophils % (auto) 69.3 %; Platelet Count 187 K/uL (130-400); RDW Coefficient of Variation 13.7 % (11.5-14.5); RDW Standard Deviation 45.3 fL (36.4-46.3); Red Blood Count 4.42 M/uL (4.7-6.1); White Blood Count 5.92 K/uL (4.8-10.8)
[2021-03-18 06:16] LABS: BUN Creatinine Ratio 13.7 (10-20); Calcium 8.5 mg/dl (8.5-10.1); Est GFR (African American) 79.9 ml/min; Est GFR (Non-African American) 68.9 ml/min; Magnesium 1.9 mg/dl (1.8-2.4); Potassium 2.8 mmol/L (3.5-5.1)
[2021-03-18] MEDS: FUROSEMIDE 20 MG in SYRINGE 0 ML IV SCH ×2 (06:31→17:50)
[2021-03-18 07:28] LABS: Estimated Average Glucose 111 mg/dl; Hemoglobin A1C 5.5 % (4.5-5.6)
[2021-03-18] MEDS: METOPROLOL TARTRATE 25 MG TAB PO SCH ×2 (07:53→20:06)
[2021-03-18] MEDS ORDERED: POTASSIUM CHLORIDE PWD 20 MEQ PACK PO ONE (08:02)
--- NOTE | 2021-03-18 10:13 | Cardiology Consultation ---
Date of Consultation March 18, 2021 Assessment & Plan (1) CHF (congestive heart failure): (2) Pacemaker: (3) Hypokalemia: (4) HTN (hypertension): 89-year-old male who presents with decompensated mixed systolic/diastolic congestive heart failure improving with IV diuretics. Echocardiogram demonstrates mildly depressed LV systolic function and diffuse manner. No findings to suggest acute ischemia is origin Plan: Continue IV diuretics with potassium supplement Patient hypertensive with congestive heart failure we will add low-dose SARA inhibitor with lisinopril 2.5 mg/day, add spironolactone 12.5 mg/day Pacemaker will be interrogated this admission last interrogation March 2020 with estimated battery life 2 years Atrial fibrillation appears controlled with paced rhythm. As noted patient not anticoagulated prior upper GI bleed, gastric angiodysplasia History of Present Illness Reason for Consultation: Congestive heart failure Attending Physician: Syeda Handley MD History of Present Illness Patient is an 89-year-old male with ongoing cardiac issues which include 1. Longstanding persistent atrial fibrillation not on anticoagulation due to prior upper GI bleed/gastric angiodysplasia 2. Tachybradycardia syndrome status post pacemaker insertion, dual-chamber 03/26/2011, [employer]tronic Adapta [id number] 3. Single-vessel atherosclerotic coronary disease status post bare-metal coronary stent mid right coronary artery June 2010 4. Chronic obstructive lung disease/emphysema 5. Hypertension 6. Seizure disorder/restless leg syndrome Patient seen and examined and information gained by review of all records and discussion with patient. Patient fair historian only. Patient has had recent difficulties of exertional dyspnea and increasing lower extremity edema. He denies any chest pains, tachypalpitations, dizziness or lightheadedness. Notes no syncope or near syncope. Notes no fevers chills or unexplained infections. Has been aware of leg heaviness for several weeks but no specific pain. No irritation over pacemaker site no overt bleeding. Appetite is been generally good. He notes several weeks of loose stools and diarrhea Clinically feels improved since hospitalization and initiation of diuresis. Allergies Allergy/AdvReac Type Severity Reaction Status Date / Time No Known Allergies Verified 03/17/21 11:07 Home Medications Medication Instructions Recorded Confirmed Type citalopram 40 mg tablet (Celexa) 40 mg PO HS 06/07/18 03/17/21 History clonazepam 1 mg tablet (Klonopin) 1 mg PO HS 06/07/18 03/17/21 History lamotrigine 100 mg tablet 100 mg PO HS 06/07/18 03/17/21 History (Lamictal) pravastatin 20 mg tablet 20 mg PO HS 06/07/18 03/17/21 History pramipexole 0.25 mg tablet 0.25 mg PO BID 06/13/18 03/17/21 History (Mirapex) aspirin 81 mg tablet,delayed 81 mg PO HS 03/17/21 03/17/21 History release (Aspirin Low Dose) metoprolol tartrate 25 mg tablet 25 mg PO BID 03/17/21 03/17/21 History Patient History Medical History (Updated 03/18/21 @ 10:24 by Kenji Woo MD) Anxiety Depression Hearing deficit Hyperlipidemia Osteoarthritis Pacemaker IMPLANTED 2010 TACHY/BRADYCARDIA MEDTRONIC DEVICE ENDOGENX CARDIOLOGY>KWAME SOPHIA Restless leg syndrome Seizure EPILEPSY (LAST EVENT OVER 30 YEARS AGO) Surgical History History of cataract surgery RT/LEFT History of colonoscopy History of esophagogastroduodenoscopy (EGD) History of tonsillectomy History of tooth extraction History of total knee replacement RT/LEFT Family History Mother Family history of diabetes mellitus Social History Smoking Status: Former smoker Cigarettes Per Day: QUIT OVER 50 YEARS AGO; Second Hand Exposure: No; Hx Alcohol Use: Yes Alcohol type: beer, wine and hard liquor Hx Substance Use: No Preferred Language: Maltese Communication Ability: Effective Granulator Tender Required: No Beliefs That Will Affect Care: None Current Living Situation: Spouse Other Information That Helps Us Care for You: No Feels Safe at Home: Yes Safety Concerns: Feels Safe At This Time Assistive Devices: None Review of Systems Review of Systems: All systems reviewed & are unremarkable except as noted in HPI & below Physical Exam Constitutional: WD/WN, vitals as above no acute distress Eyes: PERRL, conjunctivae normal, anicteric sclerae ENMT: external ear and nose normal, oropharynx normal Neck: trachea midline, no thyromegaly Respiratory: Auscultation: + diminished lung sounds and + rales Cardiovascular: Rate/Rhythm: regular rate (Ventricular paced) Heart Sounds: normal S1 and normal S2; no gallop and no murmur Palpation: normal PMI Vessels: normal carotid upstroke and radial pulses present; no JVD and no caroti d bruit Extremities: + edema (2-3+) Chest (Breasts): Chest: + pacemaker (Site without irritation or tender) Gastrointestinal (Abdomen): normal bowel sounds, soft, nontender, no hepatosplenomegaly Musculoskeletal: no cyanosis or clubbing, extremities motor strength 5/5 Skin: no rashes, warm and dry Neurologic: PERRL, EOMI, accommodation nl, no face palsy, no dysarthria Psychiatric: A+Ox3, euthymic affect Results & Data ([facility]) Vital Signs (Past 12 Hours) Vital Signs Temp Pulse Pulse Resp BP BP Pulse Ox 03/18/21 07:41 36.8 C 69 20 179/75 H 69 L 03/18/21 03:38 36.7 C 65 20 170/81 H 92 03/17/21 22:27 36.6 C 71 24 172/98 H 94 Laboratory Results Laboratory Results - last 24 hr 03/17/21 03/17/21 03/17/21 10:03 10:03 10:32 WBC 5.93 RBC 4.29 L Hgb 13.2 L Hct 39.2 L MCV 91.4 MCH 30.8 MCHC 33.7 RDW Std Deviation 45.2 RDW Coeff of Howie 13.7 Plt Count 166 MPV 9.6 Immature Gran % (Auto) 0.2 Neut % (Auto) 73.6 Lymph % (Auto) 14.7 [place] % (Auto) 8.9 Eos % (Auto) 2.4 Baso % (Auto) 0.2 Neut # (Auto) 4.37 Lymph # (Auto) 0.87 L [place] # (Auto) 0.53 Eos # (Auto) 0.14 Baso # (Auto) 0.01 Immature Gran # (Auto) 0.01 PT INR APTT PTT Ratio Sodium Potassium Chloride Carbon Dioxide Anion Gap BUN Creatinine Est Cr Clr Drug Dosing Est GFR ( Amer) Est GFR (Non-Af Amer) BUN/Creatinine Ratio Glucose Estimat Average Glucose Hemoglobin A1c Calcium Phosphorus Magnesium Total Bilirubin Direct Bilirubin AST ALT Alkaline Phosphatase Troponin I NT-Pro-B Natriuret Pep Total Protein Albumin Globulin Albumin/Globulin Ratio Triglycerides Cholesterol LDL Cholesterol, Calc VLDL Cholesterol, Calc HDL Cholesterol Cholesterol/HDL Ratio Lipase COVID-19 Eval Order Covid19 at [facility] SARS-CoV-2 (PCR) NEGATIVE 03/17/21 03/17/21 03/17/21 10:32 10:32 17:51 WBC RBC Hgb Hct MCV MCH MCHC RDW Std Deviation RDW Coeff of Howie Plt Count MPV Immature Gran % (Auto) Neut % (Auto) Lymph % (Auto) [place] % (Auto) Eos % (Auto) Baso % (Auto) Neut # (Auto) Lymph # (Auto) [place] # (Auto) Eos # (Auto) Baso # (Auto) Immature Gran # (Auto) PT 11.3 INR 1.1 APTT 26.5 PTT Ratio 1.0 Sodium 142 Potassium 2.7 L Chloride 111 H Carbon Dioxide 25 Anion Gap 6.0 BUN 17 Creatinine 1.02 Est Cr Clr Drug Dosing 47.2 Est GFR ( Amer) 75.2 Est GFR (Non-Af Amer) 64.9 BUN/Creatinine Ratio 16.5 Glucose 105 H Estimat Average Glucose Hemoglobin A1c Calcium 8.2 L Phosphorus 2.9 Magnesium 1.7 L Total Bilirubin 0.6 Direct Bilirubin 0.2 AST 19 ALT 27 Alkaline Phosphatase 83 Troponin I < 0.015 < 0.015 NT-Pro-B Natriuret Pep 3987 H Total Protein 6.1 L Albumin 3.3 L Globulin 2.8 Albumin/Globulin Ratio 1.2 Triglycerides Cholesterol LDL Cholesterol, Calc VLDL Cholesterol, Calc HDL Cholesterol Cholesterol/HDL Ratio Lipase 231 COVID-19 Eval Order SARS-CoV-2 (PCR) 03/17/21 03/18/21 03/18/21 22:54 05:25 05:25 WBC 5.92 RBC 4.42 L Hgb 13.9 L Hct 40.3 L MCV 91.2 MCH 31.4 MCHC 34.5 RDW Std Deviation 45.3 RDW Coeff of Howie 13.7 Plt Count 187 MPV 9.6 Immature Gran % (Auto) 0.0 Neut % (Auto) 69.3 Lymph % (Auto) 18.2 [place] % (Auto) 9.0 Eos % (Auto) 3.2 Baso % (Auto) 0.3 Neut # (Auto) 4.10 Lymph # (Auto) 1.08 L [place] # (Auto) 0.53 Eos # (Auto) 0.19 Baso # (Auto) 0.02 Immature Gran # (Auto) 0.00 PT INR APTT PTT Ratio Sodium 141 Potassium 2.8 L Chloride 110 H Carbon Dioxide 24 Anion Gap 7.0 BUN 13 Creatinine 0.97 Est Cr Clr Drug Dosing 48.0 Est GFR ( Amer) 79.9 Est GFR (Non-Af Amer) 68.9 BUN/Creatinine Ratio 13.7 Glucose 82 Estimat Average Glucose Hemoglobin A1c Calcium 8.5 Phosphorus Magnesium 1.9 Total Bilirubin Direct Bilirubin AST ALT Alkaline Phosphatase Troponin I < 0.015 NT-Pro-B Natriuret Pep Total Protein Albumin Globulin Albumin/Globulin Ratio Triglycerides 64 Cholesterol 110 LDL Cholesterol, Calc 46 VLDL Cholesterol, Calc 13 HDL Cholesterol 51 Cholesterol/HDL Ratio 2 Lipase COVID-19 Eval Order SARS-CoV-2 (PCR) 03/18/21 03/18/21 05:25 05:25 WBC RBC Hgb Hct MCV MCH MCHC RDW Std Deviation RDW Coeff of Howie Plt Count MPV Immature Gran % (Auto) Neut % (Auto) Lymph % (Auto) [place] % (Auto) Eos % (Auto) Baso % (Auto) Neut # (Auto) Lymph # (Auto) [place] # (Auto) Eos # (Auto) Baso # (Auto) Immature Gran # (Auto) PT INR APTT PTT Ratio Sodium Potassium Chloride Carbon Dioxide Anion Gap BUN Creatinine Est Cr Clr Drug Dosing Est GFR ( Amer) Est GFR (Non-Af Amer) BUN/Creatinine Ratio Glucose Estimat Average Glucose 111 Hemoglobin A1c 5.5 Calcium Phosphorus Magnesium Total Bilirubin Direct Bilirubin AST ALT Alkaline Phosphatase Troponin I < 0.015 NT-Pro-B Natriuret Pep Total Protein Albumin Globulin Albumin/Globulin Ratio Triglycerides Cholesterol LDL Cholesterol, Calc VLDL Cholesterol, Calc HDL Cholesterol Cholesterol/HDL Ratio Lipase COVID-19 Eval Order SARS-CoV-2 (PCR) Diagnostic Findings Echocardiogram 03/18/2021, preliminary review Moderate left hypertrophy with mild diffuse LV dysfunction EF 40-45% ECG Rhythm: atrial fibrillation Findings: + paced rhythm (1) CHF (congestive heart failure) Heart failure chronicity: unspecified Heart failure type: unspecified Qualified Code(s): I50.9 - Heart failure, unspecified
[2021-03-18] MEDS: POTASSIUM CHLORIDE / WTR 10 MEQ/100 ML PLCT IV SCH ×2 (10:20→12:07)
[2021-03-18] MEDS ORDERED: POTASSIUM CHLORIDE CRTAB 20 MEQ TABCR PO ONE (10:27)
[2021-03-18] MEDS ORDERED: lisinopril 2.5 MG TAB PO SCH (10:30)
[2021-03-18] MEDS ORDERED: lisinopril 2.5 MG TAB PO ONE ×2 (11:12→17:12)
--- NOTE | 2021-03-18 11:15 | Hospitalist Progress Note ---
Date of Service March 18, 2021 Assessment & Plan (1) CHF (congestive heart failure): Plan: Acute heart failuresuspect combination of systolic plus diastolicecho pending; uncontrolled hypertension likely contributing ; doing well on current diuresiscontinue; noted addition of spironolactone; cardiology input sought (2) Uncontrolled hypertension: Plan: Increase lisinopril (3) Hypokalemia: Plan: Replace; spironolactone addition noted (4) Restless leg syndrome: Plan: Patient is on several medications for this, will continue as per outpatient dosing Plan: Unsteadiness of gaitOT/PT Mild anemia can be followed. Admission and Anticipated Discharge Date Admission Date: March 17, 2021 Subjective Follow-up of presentation of shortness of breathdoing better; lower extremity edema better; also complains of gait unsteadinessnot new; reports was never hypertensive before Physical Exam Physical Exam: Constitutional and general: No acute distress, looks biologic age Head and face: No puffiness, atraumatic Eyes: No scleral icterus, extraocular movements normal Musculoskeletal: No acute joint swelling, no bony abnormalities Skin/dermatologic/integument: No rash, no purpura Hematologic and lymphatic: pallor +, no petechia Gastrointestinal/abdomen: Nondistended, soft, nonacute Neurologic: Cranial nerves intact, nonfocal Psychiatry: Awake, alert, pleasant, communicative Cardiovascular: Heart rhythm regular, no rub, SM 2/6, no gallop Respiratory: Chest movements equal, no use of accessory muscles, no adventitious sounds Extremities: edema +, no cyanosis Results & Data Results & Data ([facility]) Vital Signs (Past 12 Hours) Vital Signs Temp Pulse Pulse Pulse Resp BP BP 03/18/21 07:41 36.8 C 69 20 179/75 H 03/18/21 07:15 62 03/18/21 03:38 36.7 C 65 20 170/81 H Pulse Ox 03/18/21 07:41 69 L 03/18/21 07:15 03/18/21 03:38 92 PG Care Time/CCT Total # of Minutes Spent Total Time Spent with Patient: Total time spent is greater than 50% in coordination of care (as documented) at patient's floor/unit and/or counseling patient: Coding Level of Care Code 92283 Subseq Hosp Care Lvl 2 Diagnoses CHF (congestive heart failure) I50.9 Heart failure chronicity: unspecified Heart failure type: unspecified Hypokalemia E87.6 Restless leg syndrome G25.81 Uncontrolled hypertension I10 (1) CHF (congestive heart failure) Heart failure chronicity: unspecified Heart failure type: unspecified Qualified Code(s): I50.9 - Heart failure, unspecified
[2021-03-18] MEDS: PRAMIPEXOLE DIHYDROCHLO 0.25 MG TAB PO SCH ×3 (12:29→20:07)
[2021-03-18] MEDS: SPIRONOLACTONE 12.5 MG TAB PO SCH (12:29)
[2021-03-18] MEDS ORDERED: Nursing to Pharmacy Communication SCH (12:45)
[2021-03-18] MEDS ORDERED: POTASSIUM CHLORIDE CRTAB 20 MEQ TABCR PO SCH (13:00)
[2021-03-18] MEDS: ASPIRIN 81 MG ECTAB PO SCH (20:03)
[2021-03-18] MEDS: CITALOPRAM 40 MG TAB PO SCH (20:04)
[2021-03-18] MEDS: ENOXAPARIN INJ 40 MG/0.4 ML SYR SQ SCH (20:04)
[2021-03-18] MEDS: lamoTRIgine 100 MG TAB PO SCH (20:05)
[2021-03-18] MEDS: PRAVASTATIN SOD 20 MG TAB PO SCH (20:08)
[2021-03-18] MEDS: clonazePAM 1 MG TAB PO SCH (20:11)
--- NOTE | 2021-03-19 05:48 | Electrocardiogram Report ---
Test Reason : Blood Pressure : / mmHG Vent. Rate : 063 BPM Atrial Rate : 227 BPM P-R Int : 000 ms QRS Dur : 204 ms QT Int : 522 ms P-R-T Axes : 000 -74 105 degrees QTc Int : 534 ms Ventricular-paced rhythm Atrial flutter Abnormal ECG When compared with ECG of 17-MAR-2021 10:11, No significant change Confirmed by Aj Weems ([id number]) on 03/19/2021 5:48:18 AM Referred By: Rob Aponte Confirmed By:Aj Weems
[2021-03-19] MEDS: FUROSEMIDE 20 MG in SYRINGE 0 ML IV SCH (06:11)
[2021-03-19 06:36] LABS: Basophils # (auto) 0.02 K/uL (0-0.2); Basophils % (auto) 0.3 %; Eosinophils # (auto) 0.27 K/uL (0-0.5); Eosinophils % (auto) 3.6 %; Hematocrit (blood only) 43.6 % (42-52); Immature Granulocytes # (auto) 0.01 K/uL (0.00-0.02); Immature Granulocytes % (auto) 0.1 %; Lymphocytes # (auto) 2.08 K/uL (1.2-3.4); Lymphocytes % (auto) 27.4 %; Mean Corpuscular Hemoglobin 31.8 pg (25-34); Mean Corpuscular Hgb Conc 34.4 g/dL (32-36); Mean Corpuscular Volume 92.6 fL (80-100); Monocytes # (auto) 0.77 K/uL (0.11-0.59); Monocytes % (auto) 10.1 %; Neutrophils # (auto) 4.44 K/uL (1.4-6.5); Neutrophils % (auto) 58.5 %; Platelet Count 202 K/uL (130-400); RDW Coefficient of Variation 13.7 % (11.5-14.5); RDW Standard Deviation 46.6 fL (36.4-46.3); Red Blood Count 4.71 M/uL (4.7-6.1); White Blood Count 7.59 K/uL (4.8-10.8)
[2021-03-19 07:09] LABS: Albumin Level 3.5 gm/dl (3.4-5.0); BUN Creatinine Ratio 15.4 (10-20); Calcium 9.3 mg/dl (8.5-10.1); Creatinine Clr Calc Pharmacy 41.9 ml/min; Est GFR (Non-African American) 61.2 ml/min; Magnesium 1.9 mg/dl (1.8-2.4); Potassium 3.2 mmol/L (3.5-5.1)
[2021-03-19 07:12] LABS: Albumin Globulin Ratio 1.1 (0.9-2); Bilirubin,Total 0.8 mg/dl (0.2-1); Globulin 3.2 gm/dl (2.5-4.0); Total Protein 6.7 gm/dl (6.4-8.2)
[2021-03-19] MEDS ORDERED: lisinopril 5 MG TAB PO SCH (09:00)
[2021-03-19] MEDS ORDERED: POTASSIUM CHLORIDE CRTAB 20 MEQ TABCR PO SCH (09:00)
[2021-03-19] MEDS ORDERED: BUMETANIDE 1 MG TAB PO SCH (09:00)
[2021-03-19] MEDS: PRAMIPEXOLE DIHYDROCHLO 0.25 MG TAB PO SCH (09:03)
[2021-03-19] MEDS: METOPROLOL TARTRATE 25 MG TAB PO SCH (09:04)
[2021-03-19] MEDS: SPIRONOLACTONE 12.5 MG TAB PO SCH (09:04)
--- NOTE | 2021-03-19 10:40 | Cardiology Progress Note ---
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 Echocardiogram demonstrates mildly depressed LV systolic function and diffuse manner. No findings to suggest acute ischemia is origin Plan: Agree with switch to oral diuretics, Bumex 1 mg p.o. daily would continue lisinopril, low-dose spironolactone on discharge. Pacemaker interrogated today with normal device function. Device reprogrammed to VVIR given chronic A. fib flutter. Estimated battery life 19- month Will need follow-up with PCP within a week cardiology 2 to 3-weeks Admission and Anticipated Discharge Date Admission Date: March 17, 2021 Subjective Patient was seen and examined, chart, medications, telemetry reviewed. Feels substantially improved this morning after diuresis. Lower extremity edema nearly resolved. Blood pressures better. Review of Systems Review of Systems: All systems reviewed & are unremarkable except as noted in Subjective Physical Exam Constitutional: WD/WN, vitals as above no acute distress Eyes: PERRL, conjunctivae normal, anicteric sclerae ENMT: external ear and nose normal, oropharynx normal Neck: trachea midline, no thyromegaly Respiratory: Auscultation: + diminished lung sounds and + rales Cardiovascular: Rate/Rhythm: regular rate (Ventricular paced) Heart Sounds: normal S1 and normal S2; no gallop and no murmur Palpation: normal PMI Vessels: normal carotid upstroke and radial pulses present; no JVD and no carotid bruit Extremities: + edema (Trace only) Chest (Breasts): Chest: + pacemaker (Site without irritation or tender) Gastrointestinal (Abdomen): normal bowel sounds, soft, nontender, no hepatosp lenomegaly Musculoskeletal: no cyanosis or clubbing, extremities motor strength 5/5 Skin: no rashes, warm and dry Neurologic: PERRL, EOMI, accommodation nl, no face palsy, no dysarthria Psychiatric: A+Ox3, euthymic affect Results & Data ([facility]) Vital Signs (Past 12 Hours) Vital Signs Temp Pulse Pulse Resp BP Pulse Ox 03/19/21 09:50 61 03/19/21 07:42 36.7 C 67 18 127/79 92 03/19/21 03:49 36.9 C 64 16 151/70 H 93 03/18/21 23:04 36.9 C 61 18 151/72 H 96 Laboratory Results Laboratory Results - last 24 hr 03/19/21 03/19/21 05:49 05:49 WBC 7.59 RBC 4.71 Hgb 15.0 Hct 43.6 MCV 92.6 MCH 31.8 MCHC 34.4 RDW Std Deviation 46.6 H RDW Coeff of Howie 13.7 Plt Count 202 MPV 10.0 Immature Gran % (Auto) 0.1 Neut % (Auto) 58.5 Lymph % (Auto) 27.4 [place] % (Auto) 10.1 Eos % (Auto) 3.6 Baso % (Auto) 0.3 Neut # (Auto) 4.44 Lymph # (Auto) 2.08 [place] # (Auto) 0.77 H Eos # (Auto) 0.27 Baso # (Auto) 0.02 Immature Gran # (Auto) 0.01 Sodium 141 Potassium 3.2 L Chloride 108 H Carbon Dioxide 27 Anion Gap 7.0 BUN 17 Creatinine 1.07 Est Cr Clr Drug Dosing 41.9 Est GFR ( Amer) 71.0 Est GFR (Non-Af Amer) 61.2 BUN/Creatinine Ratio 15.4 Glucose 78 Calcium 9.3 Magnesium 1.9 Total Bilirubin 0.8 AST 18 ALT 26 Alkaline Phosphatase 90 Total Protein 6.7 Albumin 3.5 Globulin 3.2 Albumin/Globulin Ratio 1.1 (1) CHF (congestive heart failure) Heart failure chronicity: unspecified Heart failure type: unspecified Qualified Code(s): I50.9 - Heart failure, unspecified
--- NOTE | 2021-03-19 12:38 | Discharge Summary ---
Date of Service March 19, 2021 Admission HPI Per Admitting Provider This is a 89-year-old male past medical history of COPD that presents today complaining of worsening lower extremity edema and dyspnea on exertion. Patient is here with his daughter, both are very good historians. Patient notes that over the past several weeks that he has had onset of symptoms he has never experienced. He noted more recently that he has been having some lower extremity edema. Of more concern, he is noted that he has had decreased exercise tolerance and has been having dyspnea on exertion over shorter shorter distances. He denies any chest pain. He denies any fever or chills. He denies any urinary symptoms he denies any flank pain. He tells me that he is typically physically active but has been less able to engage in exercise because of this. He went to see his primary care provider yesterday and was told to present to the emergency room for further evaluation. At the time my evaluation, the patient is in no acute cardiopulmonary distress. He was noted to be hypertensive which is not typical for him. Imaging was consistent with CHF and patient did have an elevated BNP. Specialty Data Hospitalist Exam today: Vitals:Blood pressure 133 x 77, pulse 79, respiration 20, temperature 36.5 No edema; no JVD Chest clear Medically stable for dischargecardiology agrees Discharge Data Consultations 03/17/21 13:55 ED Decision to Admit Stat 03/17/21 17:14 Consult Cardiology Routine Hospital Course (1) Acute combined systolic (congestive) and diastolic (congestive) heart failure: Picture most consistent with same; switch to p.o. Bumex 1 mg daily; continue spironolactone; outpatient cardiology follow-up (2) Uncontrolled hypertension: Likely be component of symptomology; better control; continue lisinopril 5 mg at discharge (3) Hypokalemia: 20 mEq KCl daily (4) Restless leg syndrome: Mirapex increased to 0.25 mg 3 times a day He wants discharged to homewill not accept any other choice Mild anemia can be followed. Discharge Instructions Please have your primary provider check basic metabolic panel in 5 days Coding Level of Care Code D/C DAY MANAGEMENT >30 MINS Diagnoses Uncontrolled hypertension I10 Hypokalemia E87.6 Restless leg syndrome G25.81 Acute combined systolic (congestive) and diastolic (congestive) heart failure I50.41 Time Spent (min) 40
--- NOTE | 2021-03-20 06:14 | Electrocardiogram Report ---
Test Reason : Blood Pressure : / mmHG Vent. Rate : 067 BPM Atrial Rate : 249 BPM P-R Int : 000 ms QRS Dur : 200 ms QT Int : 564 ms P-R-T Axes : 000 -80 125 degrees QTc Int : 595 ms Ventricular-paced rhythm Atrial flutter Abnormal ECG When compared with ECG of 18-MAR-2021 06:25, No significant change Confirmed by Aj Weems ([id number]) on 03/20/2021 6:13:55 AM Referred By: Rob Aponte Confirmed By:Aj Weems
== END 2021-03-19 15:18 | disposition home or self-care (01) | DRG 292 ==
LOC: ED 09:01 → 2S 16:32 → SUATTDRO 16:32 → 2S 16:53